=== PATIENT | female | born 1985 | race Caucasian/White ===

== ENCOUNTER 2021-10-29 01:10 | Inpatient (IN) | payer OTHER ==
[2021-10-29] MEDS ORDERED: hydrALAZINE 20 MG/ML VIAL SLOW IVP PRN (01:28)
[2021-10-29] MEDS ORDERED: Promethazine HCl 25 MG/ML VIAL IM PRN (01:28)
[2021-10-29] MEDS ORDERED: Zolpidem Tartrate 5 MG TAB PO PRN (01:28)
[2021-10-29] MEDS ORDERED: Docusate 100 MG CAP PO PRN (01:28)
[2021-10-29] MEDS ORDERED: Ondansetron PF 4 MG/2 ML Vial IVP PRN ×2 (01:28→01:45)
[2021-10-29] MEDS ORDERED: Sodium Chloride 0.9% 1,000 ML IV SCH ×2 (01:45→11:15)
[2021-10-29] MEDS ORDERED: Acetaminophen 325 MG TAB PO PRN (01:45)
[2021-10-29] MEDS ORDERED: Ondansetron ODT 4 MG TAB SL PRN (01:45)
[2021-10-29] MEDS ORDERED: cefTRIAXone\\ROCEPHIN 2 GM in Sodium Chloride 0.9% 100 ML IVPB SCH ×2 (02:00→23:59)
[2021-10-29] MEDS ORDERED: methylPREDNISolone Sod Succ/PF 125 MG/2 ML VIAL IVP SCH (02:00)
[2021-10-29] MEDS ORDERED: Azithromycin 500 MG in Sodium Chloride 0.9% 250 ML 250 ML IVPB SCH ×2 (03:00→23:00)
[2021-10-29] MEDS: Acetaminophen 500 MG TAB PO PRN ×3 (04:08→16:39)
[2021-10-29 05:04] LABS: Syphilis Antibody Nonreactive (Nonreactive); Syphilis Antibody Index 0.04 S/CO (<1.00 Non-Reactive)
[2021-10-29 07:58] VITALS: BP 132/71; TEMP 98.6
[2021-10-29] MEDS ORDERED: Iron Polysaccharides Complex 150 MG CAP PO SCH (08:00)
[2021-10-29] MEDS ORDERED: Prenatal Vitamin 1 TAB PO SCH (09:00)
[2021-10-29] MEDS ORDERED: metroNIDAZOLE 500 MG in Premix Bag 1 BAG IVPB SCH (12:00)
[2021-10-29 12:28] LABS: Legionella Urinary Ag Negative (Negative); Strep pneumo Urine Ag NEGATIVE (NEGATIVE)
[2021-10-29 12:30] LABS: SARS-CoV-2 IgG Spike Ab Interp Reactive (NonReactive); SARS-CoV-2 IgG Spike Conc/Indx 81.5 AU/mL (0.00-50.0)
[2021-10-29 14:05] LABS: HBSAB Concentration Less than 8.00 mIU/mL; Hep B Surf AB Non-Reactive (NonReactive)
[2021-10-29] MEDS ORDERED: REMDESIVIR 200 MG in Sodium Chloride 0.9% 250 ML 210 ML IV SCH (16:45)
[2021-10-29] MEDS ORDERED: Dexamethasone 4 mg/ml Vial SLOW IVP SCH (21:00)
[2021-10-29 23:53] LABS: SARS-CoV-2 PCR by NAA Not Detected (NotDetected)
[2021-10-30] MEDS ORDERED: REMDESIVIR 100 MG in Sodium Chloride 0.9% 250 ML 230 ML IV SCH (16:37)
[2021-10-30 18:14] LABS: Chlam.trachomatis by PCR,Urine Not Detected (NotDetected)
== END 2021-10-29 18:17 | disposition left against medical advice (07) | DRG 831 ==
LOC: CSHANTE 01:10
PROVIDERS: ADMIT Obstetrics & Gynecology; ATTEND Obstetrics & Gynecology
DX: O99.513 Diseases of the respiratory system complicating pregnancy, third trimester (principal); J96.01 Acute respiratory failure with hypoxia; A41.9 Sepsis, unspecified organism; J12.82 Pneumonia due to coronavirus disease 2019; J45.21 Mild intermittent asthma with (acute) exacerbation; O98.813 Other maternal infectious and parasitic diseases complicating pregnancy, third trimester; O98.513 Other viral diseases complicating pregnancy, third trimester; Z3A.29 29 weeks gestation of pregnancy; O99.013 Anemia complicating pregnancy, third trimester; D64.9 Anemia, unspecified; F17.210 Nicotine dependence, cigarettes, uncomplicated; Z20.822 Contact with and (suspected) exposure to COVID-19; O30.003 Twin pregnancy, unspecified number of placenta and unspecified number of amniotic sacs, third trimester; O99.333 Smoking (tobacco) complicating pregnancy, third trimester; Z56.0 Unemployment, unspecified; Z88.8 Allergy status to other drugs, medicaments and biological substances; Z71.6 Tobacco abuse counseling
CPT/HCPCS: 36415; 71275; 76810; 83880; 84145; 86140; 86706; 86762; 86769; 86780; 86850; 86900; 86901; 87081; 87449; 87491; 87591; 87633; 87899; 93005; 93010; 94640; 94760; 99285; J2930; J7050; J7620; U0003; U0005

== ENCOUNTER 2021-10-30 08:05 | Emergency (ER) | payer OTHER ==
[2021-10-30] MEDS ORDERED: Dexamethasone 10 MG/ML VIAL ONE (08:33)
[2021-10-30] MEDS ORDERED: cefTRIAXone\\ROCEPHIN 1 GM VIAL ONE (08:34)
[2021-10-30 09:05] LABS: #Eosinphils 0.1 10x3/uL (0.0-0.5); #Monocytes 0.4 10x3/uL (0.0-1.1); #Neutrophils 15.7 10x3/uL (1.5-8.4); %Basophils 0.1 % (0.0-2.0); %Eosinophils 0.3 % (0.0-6.0); %Lymphocytes 8.3 % (18.0-47.0); %Monocytes 2.1 % (0.0-10.0); %Neutrophils 87.6 % (40.0-75.0); Hemoglobin 7.4 g/dL (12.0-15.5); Mean Corpuscular HGB CONC 31.2 g/dL (32.0-36.0); Mean Corpuscular Hemoglobin 27.5 pg (27.0-33.0); Mean Corpuscular Volume 88.1 fl (81.6-98.3); Mean Platelet Volume 8.6 fl (7.4-10.4); Platelet Count 282 10x3/uL (150-450); Red Blood Cell (RBC) Count 2.69 10x6/uL (3.90-5.03); White Blood Cell (WBC) Count 17.9 10x3/uL (3.5-10.5)
[2021-10-30] MEDS ORDERED: Azithromycin 500 MG VIAL ONE (09:08)
[2021-10-30 09:57] LABS: SARS-CoV-2 NAA Rapid Test Not Detected (NotDetected)
[2021-10-30 09:58] LABS: ALT (SGPT) 13 U/L (8-55); AST (SGOT) 28 U/L (5-34); Alkaline Phosphatase 119 U/L (40-110); Anion Gap 13 mmol/L (10-20); BUN (Urea Nitrogen) 12 mg/dL (7.0-18.7); Bilirubin, Total 0.5 mg/dL (0.2-1.2); Calc. Creatinine Clearance 0 mL/min (70-130); Calcium 8.1 mg/dL (7.8-10.44); Carbon Dioxide 18 mmol/L (22-29); Chloride 112 mmol/L (98-107); Globulin 3.3 g/dL (2.4-3.5); Glucose 114 mg/dL (70-105); Lipase 23 U/L (8-78); Magnesium 1.9 mg/dL (1.6-2.6); Potassium 3.9 mmol/L (3.5-5.1); Protein, Total 6.3 g/dL (6.0-8.3); Sodium 139 mmol/L (136-145)
[2021-10-30] MEDS ORDERED: Magnesium 2 GM/50 ML BAG (IN WATER) ONE (10:02)
[2021-10-30] MEDS ORDERED: metroNIDAZOLE 500 MG/100 ML BAG ONE (10:02)
== END 2021-10-30 10:30 ==
LOC: CSHERS 08:05
DX: O98.513 Other viral diseases complicating pregnancy, third trimester (principal); U07.1 COVID-19; O99.513 Diseases of the respiratory system complicating pregnancy, third trimester; J96.91 Respiratory failure, unspecified with hypoxia; O10.913 Unspecified pre-existing hypertension complicating pregnancy, third trimester; O99.333 Smoking (tobacco) complicating pregnancy, third trimester; F17.210 Nicotine dependence, cigarettes, uncomplicated
CPT/HCPCS: 0240U; 36415; 71045; 80053; 83605; 83690; 83735; 84484; 85025; 87040; 93005; 96365; 96367; 96368; J0456; J0696; J1100; J3475